=== PATIENT | female | born 1980 | race Two or more races ===

== ENCOUNTER 2016-11-14 17:03 | Emergency (ER) | payer BC ==
--- NOTE | ~2016-11-14 | CR151 ---
[facility] A Service of [facility] & [facility] RADIOLOGY TEXT RESULTS PATIENT: SHANNAN PEARSON LOCATION: CFTX : 76 UNIT #: [id number] AGE: [address]: Leni Chawla APRN SEX: F ORDER DR: [id number] [facility] [address] [place], [place] [address] [id number] MR#: [id number] Acc #: [id number] NAME: SHANNAN PEARSON : 1980 SEX: F STUDY DATE/TIME: 11/14/2016 16:36 UNIT: TX ROOM: STUDY DESCRIPTION: CR Hip Min 2 Views Rt Attending Physician: Leni Chawla A.P.R.N. Ordering Physician: Ed Doctor [id number] [facility] Primary Care Physician: Primary Care Physician No MEDICAL IMAGING REPORT This report is preliminary unless electronic signature is present EXAM Right hip 2 views INDICATION 36-year-old female with chronic right hip pain. Hip pain has been present for 2 weeks. COMPARISON No comparisons. FINDINGS No fracture or dislocation. Joint spaces are preserved. IMPRESSION Negative. Dictated by... Jarrell Jean M.D. THIS IS AN ELECTRONICALLY VERIFIED REPORT Jarrell Jean M.D. at 11/15/2016 11:32 AM Dheeraj TD: 11/15/2016 08:34 JOB #: [id number] MEDICAL IMAGING REPORT Page 1 of 1 COPY
== END 2016-11-14 17:55 | disposition home or self-care (01) ==
LOC: CFTX 17:03
DX: M54.31 Sciatica, right side (principal); G89.29 Other chronic pain
CPT/HCPCS: 73502; 99283